=== PATIENT | male | born 1970 | race Caucasian/White ===

== ENCOUNTER 2020-06-02 16:34 | Outpatient (REF) | payer OTHER, SELFPAY ==
[2020-06-02 17:21] LABS: COVID-19 Test Negative (Negative)
== END 2020-06-02 16:35 | disposition home or self-care (01) ==
LOC: HO.LAB 16:34
PROVIDERS: Visit Provider Internal Medicine
DX: Z20.828 Contact with and (suspected) exposure to other viral communicable diseases (principal)
CPT/HCPCS: 87635

== ENCOUNTER → 2020-06-04 14:30 | Outpatient (BNVA) | payer OTHER, SELFPAY | PROVIDERS: PCP Internal Medicine; Visit Provider Internal Medicine | DX: Z13.89 Encounter for screening for other disorder (principal) | CPT/HCPCS: 99202 ==

== ENCOUNTER 2020-06-05 10:43 | Outpatient (REF) | payer OTHER, SELFPAY ==
[2020-06-05 11:03] LABS: COVID-19 Test Negative (Negative)
== END 2020-06-05 10:44 | disposition home or self-care (01) ==
LOC: HO.LAB 10:43
PROVIDERS: Visit Provider Internal Medicine
DX: Z20.828 Contact with and (suspected) exposure to other viral communicable diseases (principal)
CPT/HCPCS: 87635

== ENCOUNTER 2023-04-04 07:42 | Outpatient (REF) | payer OTHER, SELFPAY ==
--- NOTE | ~2023-04-04 | CT_ITS ---
EXAMINATION: CT CHEST WITH CONTRAST CLINICAL INFORMATION: Aneurysm of the ascending aorta. COMPARISON: None available. TECHNIQUE: Multidetector volumetric CT imaging of the chest was obtained after the administration of 75 mL of Omnipaque 350 intravenous contrast without immediate adverse reactions. Axial MIP volume rendering provided. Sagittal and coronal reformatted images were obtained. This CT examination was performed using dose optimization techniques as appropriate, variously including the following: *Automated exposure control *Adjustment of mA and/or kV according to patient size (this includes techniques or standardized protocols for targeted exams where dose is matched to indication/reason for exam; i.e. extremities or head) *Use of iterative reconstruction technique DLP: 386 mGy-cm FINDINGS: LUNGS: The lungs are clear with no evidence of inflammation or nodules. MEDIASTINUM: There is aneurysmal dilatation of the ascending thoracic aorta with maximal measurements of 6.0 cm when made perpendicular to a center line. Maximal measurements for a patient of 53 years of age would be at most 4.0 cm*. When measurements are made in the transverse plane, values approach 6.5 cm which do not reflect the true size. The descending thoracic aorta at the same level measures 2.5 cm. A three-vessel branching pattern of the aortic arch is seen with widely patent great vessels. Heart size is normal. No mediastinal or hilar lymphadenopathy. PLEURA: There is no pleural effusion. No pleural mass or thickening. AXILLA: No lymphadenopathy. UPPER ABDOMEN: There is probable hepatic steatosis. The adrenal glands appear normal. OSSEOUS STRUCTURES: Mild degenerative change present throughout the spine. CT/CT chest w IV con IMPRESSION: Marked aneurysm dilatation of the ascending aorta with maximal dimension of 6.0 cm perpendicular to a center line. Maximal dimension for a patient of 52 years of age would be at most 4.0 cm*. Fleischner guidelines were followed. *Normal aortic diameters (in millimeters) Ascending aorta: 31+0.16 x age. Descending aorta: 21+0.16 x age. Reference: [employer] Cardi[employer] J 2006 January; 40 (3): 175-178
[2023-04-04] MEDS: iohexoL 350 MG/ML 100 ML INFUS..BTL IV (08:35)
[2023-04-04 10:21] LABS: Creatinine POC 0.5 mg/dL (0.5-1.4); GFR POC > 60
== END 2023-04-04 07:43 | disposition home or self-care (01) ==
LOC: HO.CT 07:42
PROVIDERS: PCP Nurse Practitioner Primary Care; Visit Provider Internal Medicine Cardiovascular Disease
DX: I71.21 Aneurysm of the ascending aorta, without rupture (principal)
CPT/HCPCS: 71260; 82565; Q9967

== ENCOUNTER 2023-05-14 09:44 | Outpatient (REF) | payer OTHER, SELFPAY ==
[2023-05-14 10:08] LABS: MANUAL DIFF FLAG NO
[2023-05-14 10:43] LABS: Basophils Percent Auto 0.6 % (0-2); Eosinophils Absolute Auto 0.3 X10*3/uL (0.0-0.4); Eosinophils Percent Auto 3.8 % (0-4); Hematocrit 44.2 % (42.0-52.0); Imm Gran Abs Auto 0.03 X10*3/uL (0.00-0.03); Imm Gran Pct Auto 0.4 % (0.0-0.4); Lymphocytes Absolute Auto 1.6 X10*3/uL (1.2-4.9); Lymphocytes Percent Auto 22.5 % (20-40); Mean Corpuscular HGB Conc 33.9 g/dl (31.0-36.0); Mean Corpuscular Hemoglobin 30.6 pg (27.0-33.0); Mean Corpuscular Volume 90.2 fL (80.0-98.0); Mean Platelet Volume 8.6 fL (9.4-12.4); Monocytes Absolute Auto 0.7 X10*3/uL (0.1-1.2); Monocytes Percent Auto 9.7 % (2-11); Neutrophils Absolute Auto 4.3 x10*3/uL (2.0-8.3); Platelet Count 229 X10*3/uL (160-400); Red Cell Distribution Width 11.9 % (11.0-16.0); White Blood Count 6.9 X10*3/uL (4.8-10.8)
[2023-05-14 11:23] LABS: Alanine Aminotransferase 30 U/L (0-40); Alkaline Phosphatase 50 U/L (39-117); Anion Gap 12 (12-20); Aspartate Amino Transferase 22 U/L (5-37); Bilirubin Total 0.8 mg/dL (0.0-1.0); Blood Urea Nitrogen 15 mg/dL (9-16); Carbon Dioxide 24 mmol/L (22-29); Chloride 105 mmol/L (96-108); Estimated Glomerular Filt Rate > 60; Glucose Random 94 mg/dL (60-115); Potassium 3.9 mmol/L (3.3-5.1); Sodium 137 mmol/L (135-145); Total Protein 6.9 g/dL (6.5-8.0)
== END 2023-05-14 09:45 | disposition home or self-care (01) ==
LOC: HO.LAB 09:44
PROVIDERS: PCP Nurse Practitioner Primary Care; Visit Provider Internal Medicine Cardiovascular Disease
DX: I48.20 Chronic atrial fibrillation, unspecified (principal)
CPT/HCPCS: 36415; 80053; 85025; 85610

== ENCOUNTER 2023-05-16 09:37 | Outpatient (REF) | payer OTHER, SELFPAY ==
--- NOTE | ~2023-05-16 | US_ITS ---
EXAMINATION: US EXTRACRANIAL CAROTID DUPLEX, BILATERAL CLINICAL INFORMATION: Carotid bruit COMPARISON: None available. TECHNIQUE: Real-time ultrasound and Doppler techniques (integrating B-mode 2-D vascular images, Doppler spectral analysis and color-flow Doppler imaging) were utilized to interrogate the extracranial carotid arteries, the vertebral arteries and proximal subclavian arteries bilaterally. The degree of stenosis is determined by criteria similar to NASCET. FINDINGS: Right Side: 1. There is mild atherosclerotic plaque seen in the bifurcation/proximal ICA region. 2. The common carotid artery PSV proximally is 96 cm/s and distally 77 cm/s. 3. The proximal internal carotid artery velocities are 58 cm/s systolic and 23 cm/s diastolic. 4. The proximal external carotid artery PSV is 81 cm/s. 5. The vertebral artery shows antegrade flow. 6. The subclavian artery waveforms are normal. Left Side: 1. There is mild atherosclerotic plaque seen in the bifurcation/proximal ICA region. 2. The common carotid artery PSV proximally is 99 cm/s and distally 74 cm/s. 3. The proximal internal carotid artery velocities are 58 cm/s systolic and 31 cm/s diastolic. 4. The proximal external carotid artery PSV is 61 cm/s. 5. The vertebral artery shows antegrade flow. 6. The subclavian artery waveforms are normal. US/US carotid duplex BI IMPRESSION: 1. RIGHT: Minimal, non-hemodynamically significant stenosis of the proximal right internal carotid artery corresponding to a 0-49% stenosis by velocity criteria. 2. LEFT: Minimal, non-hemodynamically significant stenosis of the proximal left internal carotid artery corresponding to a 0-49% stenosis by velocity criteria.
== END 2023-05-16 09:38 | disposition home or self-care (01) ==
LOC: HO.US 09:37
PROVIDERS: PCP Nurse Practitioner Primary Care; Visit Provider Thoracic Surgery (Cardiothoracic Vascular Surgery)
DX: I71.40 Abdominal aortic aneurysm, without rupture, unspecified (principal); R07.9 Chest pain, unspecified; R09.89 Other specified symptoms and signs involving the circulatory and respiratory systems
CPT/HCPCS: 74150; 93880

== ENCOUNTER 2023-08-28 09:54 | Outpatient (REF) | payer OTHER, SELFPAY ==
[2023-08-28 10:32] LABS: Prothrombin Time 24.5 SEC (11.1-13.3)
== END 2023-08-28 09:55 | disposition home or self-care (01) ==
LOC: HO.LAB 09:54
PROVIDERS: PCP Nurse Practitioner Primary Care; Visit Provider Internal Medicine Cardiovascular Disease
DX: I48.0 Paroxysmal atrial fibrillation (principal)
CPT/HCPCS: 36415; 85610; 99202

== ENCOUNTER 2023-08-28 10:24 | Outpatient (AMB) | payer OTHER, SELFPAY ==
--- NOTE | 2023-08-28 11:11 | MHC.OFFVISCO ---
Intake Vital Signs 08/28/23 11:53 Comment HR regular Intake Visit Reasons: Anticoagulation Gum Remover Required: No Allergies No Known Allergies [No Known Allergies*] Allergy (Mild, Verified 08/28/23 10:25) NOT APPLICABLE Medication List - Last Reconciled 08/28/23 by Zhanna Dailey RN acetaminophen 650 mg PO Q6H PRN amiodarone mg PO aspirin 81 mg PO DAILY famotidine 20 mg PO BID furosemide 40 mg PO DAILY magnesium oxide 400 mg PO DAILY metoprolol succinate ER mg PO oxycodone mg PO polyethylene glycol 3350 (Purelax) grams PO potassium chloride ER (Klor-Con M) 20 mEq PO DAILY sennosides (senna) 17.2 mg PO BEDTIME warfarin 2.5 mg PO DAILY Nursing Note INR: 2.0 in therapeutic range Medications and supplements reviewed Education completed with pt, educational folder given with instructions Denies any signs and symptoms of bleeding or bruising or clotting. Bleeding, bruising, clotting discussed Nutritional guidance given Dose: 2.5mg dailu t/c to DR. Craven -spoke with Joyce to convey msg to [facility] was able to see pt while he was here for labs and able to arrange for warfarin anticoagulation therapy education F/U INR: 08/1923 Patient verbalizes understanding of instructions given Anti-Coag Initial Assessment Social Hx Patient Tobacco Use Status: Former Tobacco user (quit 8 years ago less than pack per week ) Tobacco use type: Cigarette alcohol intake: current (few a week, seasonal ) Alcohol intake frequency: a few times a week Housing: House Housing Other:: with stairs current occupation: behavioral current occupational exposures/hazards: Yes Fall risk assessment: No Falls in past year Cardiovascular Hx: HTN (hx prior procedure ), Arrhythmias (was unknow to pt was detected on an exam, found to aortic root 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 Education Record Teaching Recipient: Patient What is the easiest way to learn: Reading, Listening and Education Packet Significant other who can be involved in Teaching Process when Indicated: rian La Gum Remover Required: No Readiness To Learn: Excellent Teaching Methods: Discussion, Handout and Protocol Education Intervention/Brief Description of Teaching 1. Able to state reason for taking Warfarin: Yes 2. Able to state Pain Management techniques: Yes 3. Able to state action of Warfarin.: Yes Able to state current dose, pill color, how and when Warfarin to be taken: Yes (enc pt to be familiar with tablets ) Able to identify signs of bleeding &/or clotting: Yes 4. Able to identify need to keep diet consistent in regard to vitamin K intake: Yes Able to state restriction on alcohol: Yes 5. Able to state need for compliance with PT/INR testing: Yes Describes rationale for carrying ID and wearing Medic Alert bracelet: Yes Patient instructed to monitor for excess bruising or signs/symptoms of clotting or bleeding: Yes 6. Able to state that there are drugs that interact with Warfin: Yes 7. Able to state the need to seek medical attention when illness/injury occur.: Yes Describes the need to avoid activities with high risk of injury: Yes 8. Able to state duration of treatment: Yes 9. Demonstrates understanding of notifying all providers of pending dental surgical, or other invasive procedures: Yes 10. 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 HAS-BLED Does the patient had uncontrolled Hypertension?: No Does the patient have renal disease?: No Does the patient have liver disease?: No Does the patient have a history of stroke?: No Has the patient had major bleeding or predisposition to bleeding?: Yes (recent surgery ) Does the patient have labile INRs?: No Is the patient over 65 years of age?: No Is the patient on medications that gives them a predisposition to bleeding?: Yes Does the patient use alcohol?: Yes HAS-BLED Score: 3 CHADSVASC Age: <65 Gender: Male Does the patient have a history of CHF?: No Does the patient have a history of Hypertension?: Yes Does the patient have a history of Stroke/TIA/Thromboembolism?: No Does the patient have a history of Vascular Disease (prior DC, PAD or aortic plaque)?: Yes (aortic aneurysm ) Does the patient have a history of Diabetes?: No CHADS VACS Score: 2 Mundo Prediction Score Rsk VTE Active Cancer: No Previous VTE, excluding superficial vein thrombosis: No Reduced mobility: No Already known Thrombophilic Condition: No With-in last month Trauma and/or Surgery: Yes Elderly 70 year or older: No Heart and/or Respiratory Failure: No Acute Myocardial infarction and/or Ischemic Stroke: No Acute Infection and/or Rheumatologic Disorder: No Obesity (BMI 30 or greater): Yes Ongoing Hormonal Treatment: No Score: 3 Mundo Score less than 4; Low Risk of VTE Munod Score 4 or greater; High Risk of VTE Coding Level of Care Code New Patient Level 2 Diagnoses Current use of anticoagulant therapy Z79.01 Assessment & Plan Assessment & Plan (1) Current use of anticoagulant therapy: Code(s): Z79.01 - USP (current) use of anticoagulants Category: Medical
== END 2023-08-28 12:02 | disposition home or self-care (01) ==
LOC: HO.ACS 10:24
PROVIDERS: PCP Nurse Practitioner Primary Care; Visit Provider Internal Medicine
DX: Z79.01 Long term (current) use of anticoagulants (principal)

== ENCOUNTER 2023-08-31 08:27 | Outpatient (AMB) | payer OTHER, SELFPAY ==
--- NOTE | 2023-08-31 08:59 | MHC.OFFVISCO ---
Intake Intake Visit Reasons: Anticoagulation Allergies No Known Allergies [No Known Allergies*] Allergy (Mild, Verified 08/31/23 08:31) NOT APPLICABLE Medication List - Last Reconciled 08/31/23 by Valentina Mishra RN acetaminophen 650 mg PO Q6H PRN amiodarone mg PO aspirin 81 mg PO DAILY famotidine 20 mg PO BID furosemide 40 mg PO DAILY magnesium oxide 400 mg PO DAILY metoprolol succinate ER mg PO oxycodone mg PO polyethylene glycol 3350 (Purelax) grams PO potassium chloride ER (Klor-Con M) 20 mEq PO DAILY sennosides (senna) 17.2 mg PO BEDTIME warfarin 2.5 mg See Protocol PO DAILY Nursing Note INR TODAY 1.8 OFFERS NO COMPLAINTS, STATES FEELING BETTER EVERY DAY, INCREASE DOSE 5MG X 2 DAYS/ 2.5MG X 5 DAYS- PLAN TO DOSE 5MG TUE AND FRI / 2.5MG X 5 DAYS F/U INR 09/04/23 ENC NO GREENS TODAY PT VERB UNDERSTANDING OF INSTRUCTIONS Anti-Coag Initial Assessment Social Hx Patient Tobacco Use Status: Former Tobacco user (quit 8 years ago less than pack per week ) Tobacco use type: Cigarette alcohol intake: current (few a week, seasonal ) Alcohol intake frequency: a few times a week Cardiovascular Hx: HTN (hx prior procedure ), Arrhythmias (was unknow to pt was detected on an exam, found to aortic root 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 Illness/Depression: No Coding Level of Care Code Est Patient Level 1 Diagnoses Current use of anticoagulant therapy Z79.01 Results AMB INR Fingerstick AMB INR Fingerstick 1.8 Last Edit by Valentina Mishra RN on 08/31/23 08:50 MANUAL ENTRY AMB INR Fingerstick AMB INR Fingerstick 1.8 Last Edit by Valentina Mishra RN on 08/31/23 09:04 DELAYED INTERFACING Assessment & Plan Assessment & Plan (1) Current use of anticoagulant therapy: Code(s): Z79.01 - [facility] (current) use of anticoagulants Category: Medical
[2023-08-31 09:19] LABS: Prothrombin Time Whole Bld POC 21.9 sec (11.1-13.5); ~PT, ~INR - Anti Coag Clinic 1.8 (0.9-1.1)
== END 2023-08-31 09:11 | disposition home or self-care (01) ==
LOC: HO.ACS 08:27
PROVIDERS: PCP Nurse Practitioner Primary Care; Visit Provider Internal Medicine
DX: Z79.01 Long term (current) use of anticoagulants (principal)

== ENCOUNTER → 2023-08-31 08:27 | Outpatient (BNVA) | payer OTHER, SELFPAY | PROVIDERS: PCP Nurse Practitioner Primary Care; Visit Provider Internal Medicine | DX: Z95.2 Presence of prosthetic heart valve (principal); Z51.81 Encounter for therapeutic drug level monitoring; Z79.01 Long term (current) use of anticoagulants | CPT/HCPCS: 85610; 99211 ==

== ENCOUNTER 2023-09-04 08:17 | Outpatient (AMB) | payer OTHER, SELFPAY ==
[2023-09-04 08:23] LABS: Prothrombin Time Whole Bld POC 22.8 sec (11.1-13.5); ~PT, ~INR - Anti Coag Clinic 1.9 (0.9-1.1)
--- NOTE | 2023-09-04 08:23 | MHC.OFFVISCO ---
Intake Intake Visit Reasons: Anticoagulation Allergies No Known Allergies [No Known Allergies*] Allergy (Mild, Verified 09/04/23 08:19) NOT APPLICABLE Medication List - Last Reconciled 09/04/23 by Odalys France RN acetaminophen 650 mg PO Q6H PRN amiodarone mg PO aspirin 81 mg PO DAILY famotidine 20 mg PO BID furosemide 40 mg PO DAILY magnesium oxide 400 mg PO DAILY metoprolol succinate ER mg PO oxycodone mg PO polyethylene glycol 3350 (Purelax) grams PO potassium chloride ER (Klor-Con M) 20 mEq PO DAILY sennosides (senna) 17.2 mg PO BEDTIME warfarin 2.5 mg See Protocol PO DAILY Nursing Note INR 1.9-?? out of therapeutic range of 2-3 Medications and supplements reviewed Patient status: no c.o Medications or supplements: no changes Diet: poor appetite Denies any signs and symptoms of bleeding or clotting or unusual bruising Bleeding, bruising, clotting discussed Nutritional guidance given: no greens for 2-3 days, eat a red to raise Dose: 5mg today and increase weekly dosing to 5mg x 5, 2.5mg x 4 F/U INR Date : 09/06/23 Patient verbalizing understanding of instructions given. 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 Illness/Depression: No Coding Level of Care Code Est Patient Level 1 Diagnoses Current use of anticoagulant therapy Z79.01 Assessment & Plan Assessment & Plan (1) Current use of anticoagulant therapy: Code(s): Z79.01 - intermediate (current) use of anticoagulants Category: Medical
== END 2023-09-04 08:31 | disposition home or self-care (01) ==
LOC: HO.ACS 08:17
PROVIDERS: PCP Nurse Practitioner Primary Care; Visit Provider Internal Medicine
DX: Z79.01 Long term (current) use of anticoagulants (principal)

== ENCOUNTER → 2023-09-04 08:17 | Outpatient (BNVA) | payer OTHER, SELFPAY | PROVIDERS: PCP Nurse Practitioner Primary Care; Visit Provider Internal Medicine | DX: Z95.2 Presence of prosthetic heart valve (principal); Z51.81 Encounter for therapeutic drug level monitoring; Z79.01 Long term (current) use of anticoagulants | CPT/HCPCS: 85610; 99211 ==

== ENCOUNTER 2023-09-06 08:30 | Outpatient (AMB) | payer OTHER, SELFPAY ==
[2023-09-06 08:48] LABS: Prothrombin Time Whole Bld POC 26.4 sec (11.1-13.5); ~PT, ~INR - Anti Coag Clinic 2.2 (0.9-1.1)
--- NOTE | 2023-09-06 08:54 | MHC.OFFVISCO ---
Intake Intake Visit Reasons: Anticoagulation Allergies No Known Allergies [No Known Allergies*] Allergy (Mild, Verified 09/06/23 08:40) NOT APPLICABLE Medication List - Last Reconciled 09/06/23 by Valentina Mishra RN acetaminophen 650 mg PO Q6H PRN amiodarone mg PO DAILY aspirin 81 mg PO DAILY famotidine 20 mg PO BID furosemide 40 mg PO DAILY magnesium oxide 400 mg PO DAILY metoprolol succinate ER mg PO oxycodone mg PO polyethylene glycol 3350 (Purelax) grams PO potassium chloride ER (Klor-Con M) 20 mEq PO DAILY sennosides (senna) 17.2 mg PO BEDTIME warfarin 2.5 mg See Protocol PO DAILY Nursing Note NO CHANGE IN MEDICATIONS, DIET OR HEALTH STATUS. NO UNUSUAL BLEEDING OR BRUISING OR CHEST PAIN OR SOB. INR IN LOWER PART OF RANGE. DOSE ADJUSTED TO 5 MG X3DAYS AND 2.5 MG X4DAYS. CONTINUE TO BALANCE GREENS AND REDS. F/U ON SUNDAY 09/10 PT VERBALIZES INSTRUCTIONS. 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
== END 2023-09-06 09:03 | disposition home or self-care (01) ==
LOC: HO.ACS 08:30
PROVIDERS: PCP Nurse Practitioner Primary Care; Visit Provider Internal Medicine
DX: Z79.01 Long term (current) use of anticoagulants (principal)

== ENCOUNTER → 2023-09-06 08:30 | Outpatient (BNVA) | payer OTHER, SELFPAY | PROVIDERS: PCP Nurse Practitioner Primary Care; Visit Provider Internal Medicine | DX: Z95.2 Presence of prosthetic heart valve (principal); I48.91 Unspecified atrial fibrillation; Z51.81 Encounter for therapeutic drug level monitoring; Z79.01 Long term (current) use of anticoagulants | CPT/HCPCS: 85610; 99211 ==

== ENCOUNTER → 2023-09-10 08:50 | Outpatient (BNVA) | payer OTHER, SELFPAY | PROVIDERS: PCP Nurse Practitioner Primary Care; Visit Provider Internal Medicine | DX: Z95.2 Presence of prosthetic heart valve (principal); Z51.81 Encounter for therapeutic drug level monitoring; Z79.01 Long term (current) use of anticoagulants | CPT/HCPCS: 85610; 99211 ==

== ENCOUNTER 2024-11-26 09:08 | Emergency (ER) | payer OTHER, SELFPAY ==
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
[2024-11-26 09:13] VITALS: BP 132/92; PULSE 83; RESP 16; TEMP 36.6; O2SAT 97; BMI 43.0
[2024-11-26 09:20] VITALS: BP 152/92; PULSE 83; RESP 16; TEMP 36.1; O2SAT 97
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
[2024-11-26 11:19] VITALS: BP 152/92; PULSE 83; RESP 16; TEMP 36.1; O2SAT 97
--- OUTSIDE RECORDS SUMMARY | 2024-11-26 12:10 | XMS_ITS | Clinical Summary ---
Author Organization [place] [address] [address] Building Address [address] [place] [address] Phone Care Team Providers Care Green Feed Attendant Name Role Phone Kyung Hassan NP Primary Care Provider [phone] Allergies No known active allergies Medications amoxicillin (AMOXIL) 500 mg tablet Take 4 tablets 30-60 minutes prior to dental procedures. 4 Active aspirin 81 mg EC tablet TAKE 1 TABLET (81 MG) BY MOUTH DAILY FOR 30 DAYS. 4 Active metaxalone (SKELAXIN) 800 mg tablet TAKE 1 TABLET BY MOUTH TWICE A DAY NEEDED FOR PAIN 30 tablet 1 5 Active losartan (COZAAR) 50 mg tablet Take 1 tablet (50 mg total) by mouth 1 (one) time each day. 90 each 1 5 05/10/20 25 Active losartan (COZAAR) 50 mg tablet Take 1 tablet (50 mg total) by mouth 1 (one) time each day. 4 11/12/19 25 Discontinu ed(Reorder ) Active Problems Problem Noted Date Diagnosed Date Aortic stenosis 11/12/2023 Overview (05/27/2024): Last Assessment & Plan: Patient has history of aortic valve replacement with a pericardial bovine pericardial valve. We reviewed endocarditis prophylaxis and I renewed his antibiotics. We will update an echocardiogram prior to his next office visit. Aortic aneurysm ([facility] V24) 08/14/2023 Severe obesity ([facility] V24, [facility] V28) 2022 Ascending aortic aneurysm ([facility] V24) 04/09/20 23 Overview (05/27/2024): Last Assessment & Plan: Patient underwent repair of a ascending aortic aneurysm and had aortic valve replacement with a number 27 mm bovine pericardial composite valve graft and cryo maze ablation on 08/15/2023 at [facility]. He continues on aspirin 81 mg once a day. I have reviewed with the patient the importance of a heart healthy lifestyle which includes eating a low-fat low-salt diet, getting regular exercise, maintaining a healthy weight, not smoking, and following up with routine medical care. Atrial fibrillation ([facility] V24, [facility] V28) 0 12/27/2022 Overview (05/27/2024): Last Assessment & Plan: Patient underwent cardiac surgery as outlined in detailed above. His postoperative course was complicated with paroxysmal atrial fibrillation which was treated with beta-rip and warfarin for anticoagulation. He was started on amiodarone for rhythm control and he would have been considered for cardioversion and had not converted on his own. We eventually weaned him off of the amiodarone and repeated a patient monitor which did not show any recurrent atrial fibrillation. He denies any exertional symptoms. He was previously on anticoagulation in anticipation of possible cardioversion and now that he is off of his antiarrhythmic and has remained in sinus rhythm we will discontinue his anticoagulation as he has a [id number] score of 1 for hypertension. He will let us know if he develops any recurrent symptoms. Sleep apnea 12/27/2022 Overview (05/27/2024): Last Assessment & Plan: Patient's sleep study has been ordered and is in the process of having scheduled. Arrhythmia 12/25/2022 Primary hypertension 10/27/2022 Overview (05/27/2024): Last Assessment & Plan: Blood pressure is under excellent control with a reading today of 118/78. Continue with losartan and metoprolol. Encounters Date Type Department Care Team Description 11/11/2024 9:00 AM EDT [facility] [address] [place] [address] Kyung Hassan, JOSÉ MIGUEL Adult general medical examination (Primary Dx); Atrial fibrillation, unspecified type (CMS/HCC V24, [facility] V28); Aortic valve stenosis, etiology of cardiac valve disease unspecified; Severe obesity (CMS/[facility] V24, [facility] V28); Primary hypertension; Chronic pain of right knee; Screen for colon cancer; Need for prophylactic vaccination against Streptococcus pneumoniae (pneumococcus) from Last 3 Months Immunizations Name Administration Dates Next Due Influenza trivalent, 0.5mL, preservative free (Fluarix; FluLaval; Fluzone) ages 6mo and older (Afluria) 3 years and older 05/30/2022,05/17/2021,05/11/2020,2017,05/25/2017 Influenza trivalent, with preservative (Fluzone; Afluria) 6mo and older 06/09/2016 Pneumococcal conjugate 20 va lent (Prevnar 20, PCV 20) 2mo and older 11/11/2024 Surgical History Surgery Date Site/Laterality Comments KNEE SURGERY Right PROCEDURE: HISTORICAL KNEE SURGERY OTHER SURGICAL HISTORY PROCEDURE: MO REPLACE AORTIC VALVE OPEN AXILLRY ARTRY APPROACH OTHER SURGICAL HISTORY PROCEDURE: REPAIR, ENDOVASC, INFRARENAL ABDOM AORTIC ANEURYSM/DISSECT; MODULAR BIFURCATED PROSTH (2 DOCK LIMB); COMMENT: open repair OTHER SURGICAL HISTORY PROCEDURE: MO ANES CARDIAC ELECTROPHYSIOL STDY W/RF ABLATION Medical History Medical History Date Comments Microscopic hematuria DX:Microsc opic hematuria; COMMENT: s/p CT scan and negative cystoscopy Family History Medical History Relation Name Comments Hypertension Father Prostate cancer Maternal Grandfather Stroke Maternal Grandfather Hypertension Sister Relation Name Status Comments Father Maternal Grandfather Sister Social History Tobacco Use Types Packs/Day Years Used Date Smoking Tobacco: Former Cigarettes Q uit: 08/13/2009 Smokeless Tobacco: Never Alcohol Use Standard Drinks/Week Comments Yes 0 (1 standard drink = 0.6 oz pur e alcohol) 0-5/week Sex and Gender Information Value Date Recorded Sex Assigned at Not on file Legal Sex Male 9:47 PM EST Gender Identity Not on file Sexual Orientation Not on file Obstetrics History Last Filed Vital Signs Vital Sign Reading Time Taken Comments Blood Pressure 122/84 11/11/2024 9:13 AM EDT A Pulse 67 11/11/2024 9:13 AM EDT Temperature - - Respiratory Rate - - Oxygen Saturation - - Inhaled Oxygen Concentration - - Weight 157 kg (345 lb 12.8 oz) 11/11/2024 9:13 A M EDT Height 193 cm (6' 4 ) 11/11/2024 9:13 AM EDT Body Mass Index 42.09 11/11/2024 9:13 AM EDT Plan of Treatment Upcoming Encounters Date Type Department Care Team (Late st Contact Info) Description 05/13/2025 8:45 AM EDT [facility] [address] [place] [address] Kyung Hassan, JOSÉ MIGUEL [address] [place] [address] Health Maintenance Due Date Last Done Comments Zoster Vaccines (1 of 2) 2019 Colorectal Cancer Screening: FIT-DNA (Cologuard) 09/11/2023 Social Influencers of Health Screening 09/11/2023 Hypertension/CHF/CAD Annual BMP Blood Test 05/13/2025 05/13/2024, 05/13/2024, 08/21/2023, Additional history exists DTaP,Tdap,and Td Vaccines (1 - Tdap) 11/11/2025 Postponed from 1988 (Patient Refused) Depression Screening 11/11/2025 11/11/2024 Cholesterol Screening (Lipid Panel) 05/13/2029 05/13/2024, 05/13/2024, 08/19/2023 Hepatitis C Screening Completed 08/13/2011 Influenza Vaccine Completed 05/22/2024, , 05/30/2022, Additional history exists COVID-19 Vaccine Completed 06/04/2024, , 03/10/2022, Additional history exists Pneumococcal Vaccine: 50+ Years Completed 11/11/2024 Pneumococcal Vaccine: Pediatrics (0 to 5 Years) and At-Risk Patients (6 to 64 Years) Aged Out 11/11/2024 No longer eligible based on patient's age to complete this topic HIB Vaccines Aged Out No longer eligi ble based on patient's age to complete this topic HIV Screening Discontinued HPV Vaccines Aged Out No longer eligi ble based on patient's age to complete this topic Hepatitis A Vaccines Aged Out No long er eligible based on patient's age to complete this topic Hepatitis B Vaccines Discontinued IPV Vaccines Aged Out No longer eligi ble based on patient's age to complete this topic MMR Vaccines Aged Out No longer eligi ble based on patient's age to complete this topic Meningococcal ACWY Vaccine Aged Out N o longer eligible based on patient's age to complete this topic Meningococcal B Vaccine Aged Out No l onger eligible based on patient's age to complete this topic RSV Immunization Patients Under 20 months Aged Out No longer eligible based on patient's age to complete this topic Varicella Vaccines Aged Out No longer eligible based on patient's age to complete this topic Procedures Procedure Name Priority Date/Time Associated Diagnosis Comments ANNUAL BMP BLOOD TEST Routine 05/13/2024 LIPID PANEL Routine 05/13/2024 HEPATITIS C SCREENING Routine 08/13/2011 from Last 3 Months or Most Recently Relevant to Health Maintenance Results * Annual BMP Blood Test (05/13/2024) Pathologist [facility] Annual BMP Blood Test abstracted Historical Provider HEALTH MAINTENANCE Final Result * Lipid panel (05/13/2024) Pathologist [facility] LDL/HDL Ratio 3 Triglycerides 72 mg/dL Cholesterol 181 mg/dL HDL 72 mg/dL LDL Cholesterol 95 mg/dL Blood Venous blood specimen / Unknown Historical Provider LAB BLOOD ORDERABLES Lila l Result * Hepatitis C Screening (08/13/2011) Pathologist [facility] Hepatitis C Screening abstracted Historical Provider HEALTH MAINTENANCE Final Result from Last 3 Months or Most Recently Relevant to Health Maintenance Insurance [employer] [facility] Care Teams Green Feed Attendant Relationship Specialty Start Date End Date Kyung Hassan NP [address] [place] [address] PCP - General 09/01/22
== END 2024-11-26 11:20 | disposition home or self-care (01) ==
PROVIDERS: Emergency Provider Emergency Medicine; PCP Nurse Practitioner Primary Care
DX: S01.301A Unspecified open wound of right ear, initial encounter (principal); S00.81XA Abrasion of other part of head, initial encounter; Y04.2XXA Assault by strike against or bumped into by another person, initial encounter; Y93.F9 Activity, other caregiving; Y92.239 Unspecified place in hospital as the place of occurrence of the external cause; Y99.8 Other external cause status
CPT/HCPCS: 70450; 99282; 99284

== ENCOUNTER → 2024-11-26 09:37 | Outpatient (BNV) | payer OTHER, SELFPAY | PROVIDERS: Emergency Provider Emergency Medicine; PCP Nurse Practitioner Primary Care; Visit Provider Radiology Diagnostic Radiology | DX: S09.90XA Unspecified injury of head, initial encounter (principal); Y04.2XXA Assault by strike against or bumped into by another person, initial encounter | CPT/HCPCS: 70450 ==